=== PATIENT | female | born 1995 | race Caucasian/White ===

== ENCOUNTER 2019-07-13 05:44 | Emergency (ER) | payer OTHER ==
[2019-07-13] MEDS ORDERED: Sodium Chloride 0.9% 10 ML Syringe FLUSH PRN (06:25)
--- NOTE | 2019-07-13 06:34 | EDM.PDOC ---
ED HPI GENERAL MEDICAL PROBLEM - General Chief Complaint: General Stated Complaint: nausea/vomiting Time Seen by Provider: 07/13/19 06:13 Source of Information: Reports: Patient History Limitations: Reports: No Limitations - History of Present Illness INITIAL COMMENTS - FREE TEXT/NARRATIVE: Patient comes to ER reporting that she developed intermittent sharp pains that would travel up the back of her neck intermittently overnight after she went to bed. These would wake her up. This morning she still has the intermittent pain and also has nausea and vomiting. Nothing specifically triggers the neck pain. No vertigo/visual changes. Had a recent head cold a week ago but that resolved. Had headache on way to ER but that also has resolved. Has tingly paresthesias both upper arms. Glove and stocking distribution. Improves when patient not laying down trying to sleep. Feels like she is "trying to stand on a boat" when standing. Near to hyperventilation when she arrived per ER nurse. No other acute complaints. Has had some shooting pains in the neck on one side before from shoulder issues, but not both sides. Denies chance of Did have a few drinks with significant other last night. - Related Data Allergies Allergy/AdvReac Type Severity Reaction Status Date / Time Sulfa (Sulfonamide Allergy Hives Verified 07/13/19 06:01 Antibiotics) Home Meds: Home Meds Norgestimate-Ethinyl Estradiol [Estarylla 0.25-0.035 mg Tablet] 1 each PO DAILY 07/13/19 [History] Past Medical History - Past Surgical History Female Surgical History: Reports: None Musculoskeletal Surgical History: Reports: Other (See Below) Other Musculoskeletal Surgeries/Procedures:: Scope of the right knee. Social & Family History - Family History Family Medical History: Unobtainable - Tobacco Use Smoking Status *Q: Never Smoker - Caffeine Use Caffeine Use: Reports: Coffee, Soda - Alcohol Use Days Per Week of Alcohol Use: 1 Number of Drinks Per Day: 1 Total Drinks Per Week: 1 - Recreational Drug Use Recreational Drug Use: No ED ROS GENERAL - Review of Systems Review Of Systems: See Below Constitutional: Reports: Malaise, Decreased Appetite. Denies: Fever, Chills, Weakness, Night Sweats, Diaphoresis HEENT: Denies: Dental Pain, Ear Pain, Rhinitis, Throat Pain, Vertigo, Vision Change Respiratory: Reports: No Symptoms Cardiovascular: Reports: No Symptoms GI/Abdominal: Reports: Nausea, Vomiting. Denies: Abdominal Pain, Constipation, Diarrhea : Reports: No Symptoms Musculoskeletal: Reports: Neck Pain. Denies: Muscle Stiffness Skin: Reports: No Symptoms Neurological: Reports: Dizziness, Headache, Paresthesia, Tingling. Denies: Pre- Existing Deficit, Seizure, Syncope, Trouble Speaking, Weakness, Change in Speech , Gait Disturbance Psychiatric: Reports: Anxiety (about symptoms) Hematologic/Lymphatic: Reports: No Symptoms ED EXAM, GENERAL - Physical Exam Exam: See Below Exam Limited By: No Limitations General Appearance: Alert, WD/WN, No Apparent Distress Eye Exam: Bilateral Eye: EOMI, PERRL Ears: Normal External Exam, Normal Canal, Hearing Grossly Normal, Normal TMs Nose: Normal Inspection Throat/Mouth: Normal Inspection, Normal Lips, Normal Voice, No Airway Compromise Head: Atraumatic, Normocephalic Neck: Normal Inspection, Supple, Full Range of Motion, Other (Tender with palpation over both SCM muscles, reproduces pain complaint) Respiratory/Chest: No Respiratory Distress, Lungs Clear, Normal Breath Sounds Cardiovascular: Normal Peripheral Pulses, Regular Rate, Rhythm, No Edema, No Murmur GI/Abdominal: Normal Bowel Sounds, Soft, Non-Tender, No Distention (Female) Exam: Deferred Rectal (Female) Exam: Deferred Back Exam: No: CVA Tenderness (L), CVA Tenderness (R), Muscle Spasm, Paraspinal Tenderness, Vertebral Tenderness Extremities: Normal Range of Motion, Non-Tender, Normal Capillary Refill Neurological: Alert, Oriented, CN II-XII Intact, Normal Cognition, Other ( Sensation intact limbs) Psychiatric: Anxious Skin Exam: Warm, Dry, Intact, Normal Color, No Rash Course - Vital Signs Last Recorded V/S: Last Vital Signs Temp 36.9 C 07/13/19 06:44 Pulse 66 07/13/19 07:41 Resp 15 07/13/19 07:41 BP 106/84 07/13/19 07:41 Pulse Ox 100 07/13/19 07:41 - Orders/Labs/Meds Orders: Active Orders 24 hr Category Date Time Status UA W/MICROSCOPIC [URIN] Stat Lab 07/13/19 06:40 Ordered Sodium Chloride 0.9% [Saline Flush] Med 07/13/19 06:25 Active 10 ml FLUSH ASDIRECTED PRN Saline Lock Insert [OM.PC] Routine Oth 07/13/19 06:25 Ordered Medication Orders Sodium Chloride (Saline Flush) 10 ml FLUSH ASDIRECTED PRN PRN Reason: Keep Vein Open Labs: Laboratory Tests 07/13/19 07/13/19 07/13/19 Range/Units 06:40 06:40 06:40 WBC 9.9 (4.0-10.2) K/uL RBC 4.46 (3.77-5.09) M/uL Hgb 13.0 (11.7-15.5) g/dL Hct 37.2 (34.0-46.0) % MCV 83.4 L (84.0-98.0) fL MCH 29.1 (28.2-33.3) pg MCHC 34.9 (31.7-36.0) g/dL RDW 13.2 (11.2-14.1) % Plt Count 294 (150-350) K/uL Neut % (Auto) 70.9 (45.0-80.0) % Lymph % (Auto) 20.5 (10.0-50.0) % Boyle % (Auto) 5.9 (2.0-14.0) % Eos % (Auto) 2.1 (0.0-5.0) % Baso % (Auto) 0.6 (0.0-2.0) % Neut # (Auto) 6.99 (1.40-7.00) K/uL Lymph # (Auto) 2.02 (0.50-3.50) K/uL Boyle # (Auto) 0.58 (0.00-1.00) K/uL Eos # (Auto) 0.21 (0.00-0.50) K/uL Baso # (Auto) 0.06 (0.00-0.20) K/uL Sodium 141 (136-145) mmol/L Potassium 3.7 (3.5-5.1) mmol/L Chloride 104 (98-107) mmol/L Carbon Dioxide 24.6 (21.0-32.0) mmol/L BUN 11 (7-18) mg/dL Creatinine 0.81 (0.51-1.17) mg/dL Est Cr Clr Drug Dosing 123.59 mL/min Estimated GFR (MDRD) > 60 mL/min Glucose 95 (74-106) mg/dL Lactic Acid 2.8 H (0.4-2.0) mmol/L Calcium 8.8 (8.5-10.1) mg/dL Magnesium 1.3 L (1.8-2.4) mg/dL Total Bilirubin 0.3 (0.2-1.0) mg/dL AST 19 (15-37) U/L ALT 27 (12-78) U/L Alkaline Phosphatase 58 (46-116) IU/L Total Protein 6.8 (6.4-8.2) g/dL Albumin 3.4 (3.4-5.0) g/dL Meds: Medications Generic Name Dose Route Start Last Admin Trade Name Freq PRN Reason Stop Dose Admin Sodium Chloride 10 ml 07/13/19 06:25 Saline Flush FLUSH ASDIRECTED PRN Keep Vein Open Discontinued Medications Generic Name Dose Route Start Last Admin Trade Name Freq PRN Reason Stop Dose Admin Diazepam 2 mg 07/13/19 06:41 07/13/19 07:13 Valium IVPUSH 07/13/19 06:42 2 mg ONETIME ONE Administration Sodium Chloride 1,000 mls @ 999 mls/hr 07/13/19 06:40 07/13/19 06:48 Normal Saline IV 07/13/19 07:40 999 mls/hr .BOLUS ONE Administration Ketorolac Tromethamine 30 mg 07/13/19 06:40 07/13/19 07:10 Toradol IVPUSH 07/13/19 06:41 30 mg ONETIME ONE Administration Ondansetron HCl 4 mg 07/13/19 06:40 07/13/19 07:08 Zofran IVPUSH 07/13/19 06:41 4 mg ONETIME ONE Administration - Re-Assessments/Exams Free Text/Narrative Re-Assessment/Exam: 07/13/19 06:38 Possible gastroenteritis, unusual grouping of symptoms. Will order labs. IV fluids. Meds for nausea/anxiety. Free Text/Narrative Re-Assessment/Exam: 07/13/19 08:05 Patient is feeling improved. Tingling of hands is not as bad, neither is the neck muscle tightness/pain. Emesis improved. Lab results show elevated lactic acid, low mag. Plan at this time is to give additional fluid and magnesium replacement. Re- evaluate lactic acid at 1100. to take over care at this time. Departure - Departure Time of Disposition: 08:08 Disposition: Still A Patient 30 Condition: Good Clinical Impression: Elevated lactic acid level, Paresthesia of both hands, Muscle pain, cervical Nausea & vomiting Qualifiers: Vomiting type: unspecified Vomiting Intractability: non-intractable Qualified Code(s): R11.2 - Nausea with vomiting, unspecified - Discharge Information Sepsis Event Note - Focused Exam Vital Signs: Vital Signs Temp Pulse Resp BP Pulse Ox 07/13/19 07:41 66 15 106/84 100 07/13/19 07:21 71 16 122/73 100 07/13/19 07:05 75 16 126/71 100 07/13/19 06:44 36.9 C 72 16 128/81 100 Date Exam was Performed: 07/13/19 Time Exam was Performed: 08:05 - My Orders Last 24 Hours: My Active Orders 07/13/19 06:25 Sodium Chloride 0.9% [Saline Flush] 10 ml FLUSH ASDIRECTED PRN Saline Lock Insert [OM.PC] Routine 07/13/19 06:40 UA W/MICROSCOPIC [URIN] Stat - Assessment/Plan Last 24 Hours: My Active Orders 07/13/19 06:25 Sodium Chloride 0.9% [Saline Flush] 10 ml FLUSH ASDIRECTED PRN Saline Lock Insert [OM.PC] Routine 07/13/19 06:40 UA W/MICROSCOPIC [URIN] Stat
[2019-07-13] MEDS ORDERED: Ondansetron 4 MG/2 ML SDV IVPUSH ONE (06:40)
[2019-07-13] MEDS ORDERED: Ketorolac 30 MG/ML SDV IVPUSH ONE (06:40)
[2019-07-13] MEDS ORDERED: Sodium Chloride 0.9% 1,000 ML IV ONE ×2 (06:40→08:11)
[2019-07-13 07:02] LABS: CHLORIDE,CL 104 mmol/L (98-107); SODIUM,NA 141 mmol/L (136-145)
--- NOTE | 2019-07-13 11:53 | EDM.PDOC ---
ED HPI GENERAL MEDICAL PROBLEM - General Chief Complaint: General Stated Complaint: nausea/vomiting Time Seen by Provider: 07/13/19 06:13 Source of Information: Reports: Patient History Limitations: Reports: No Limitations - History of Present Illness INITIAL COMMENTS - FREE TEXT/NARRATIVE: Patient comes to ER reporting that she developed intermittent sharp pains that would travel up the back of her neck intermittently overnight after she went to bed. These would wake her up. This morning she still has the intermittent pain and also has nausea and vomiting. Nothing specifically triggers the neck pain. No vertigo/visual changes. Had a recent head cold a week ago but that resolved. Had headache on way to ER but that also has resolved. Has tingly paresthesias both upper arms. Glove and stocking distribution. Improves when patient not laying down trying to sleep. Feels like she is "trying to stand on a boat" when standing. Near to hyperventilation when she arrived per ER nurse. No other acute complaints. Has had some shooting pains in the neck on one side before from shoulder issues, but not both sides. Denies chance of Did have a few drinks with significant other last night. ADDENDUM: I did assume care from Dr. Lara this morning with Dr. Lara updating me concerning her treatment plan, etc. prior to transferring the patient's care to me in the emergency room. 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 - Past Surgical History Female Surgical History: Reports: None Musculoskeletal Surgical History: Reports: Other (See Below) Other Musculoskeletal Surgeries/Procedures:: Scope of the right knee. Social & Family History - Family History Family Medical History: Unobtainable - Tobacco Use Smoking Status *Q: Never Smoker Tobacco Use Within Last Twelve Months: No Used Tobacco, but Quit: No Smoking Cessation Information Provided To Patient: No Second Hand Smoke Exposure: No Second Hand Smoke Education Provided: No - Caffeine Use Caffeine Use: Reports: Coffee, Soda - Alcohol Use Days Per Week of Alcohol Use: 1 Number of Drinks Per Day: 1 Total Drinks Per Week: 1 - Recreational Drug Use Recreational Drug Use: No ED ROS GENERAL - Review of Systems Review Of Systems: Comprehensive ROS is negative, except as noted in HPI. (As conducted by Dr. Lara) ED EXAM, GENERAL - Physical Exam Exam: See Below (As conducted by Dr. Lara) Free Text/Narrative:: Patient comes to ER reporting that she developed intermittent sharp pains that would travel up the back of her neck intermittently overnight after she went to bed. These would wake her up. This morning she still has the intermittent pain and also has nausea and vomiting. Nothing specifically triggers the neck pain. No vertigo/visual changes. Had a recent head cold a week ago but that resolved. Had headache on way to ER but that also has resolved. Has tingly paresthesias both upper arms. Glove and stocking distribution. Improves when patient not laying down trying to sleep. Feels like she is "trying to stand on a boat" when standing. Near to hyperventilation when she arrived per ER nurse. No other acute complaints. Has had some shooting pains in the neck on one side before from shoulder issues, but not both sides. Denies chance of Did have a few drinks with significant other last night. Exam Limited By: No Limitations General Appearance: Alert, WD/WN, No Apparent Distress Ears: Normal External Exam, Normal Canal, Hearing Grossly Normal, Normal TMs Nose: Normal Inspection Throat/Mouth: Normal Inspection, Normal Lips, Normal Voice, No Airway Compromise Head: Atraumatic, Normocephalic Neck: Normal Inspection, Supple, Full Range of Motion, Other (Tender with palpation over both SCM muscles, reproduces pain complaint) Respiratory/Chest: No Respiratory Distress, Lungs Clear, Normal Breath Sounds Cardiovascular: Normal Peripheral Pulses, Regular Rate, Rhythm, No Edema, No Murmur GI/Abdominal: Normal Bowel Sounds, Soft, Non-Tender, No Distention Back Exam: No: CVA Tenderness (L), CVA Tenderness (R), Muscle Spasm, Paraspinal Tenderness, Vertebral Tenderness Extremities: Normal Range of Motion, Non-Tender, Normal Capillary Refill Neurological: Alert, Oriented, CN II-XII Intact, Normal Cognition, Other ( Sensation intact limbs) Psychiatric: Anxious Skin Exam: Warm, Dry, Intact, Normal Color, No Rash Course - Vital Signs Last Recorded V/S: Last Vital Signs Temp 36.9 C 07/13/19 06:44 Pulse 66 07/13/19 11:30 Resp 19 07/13/19 11:30 BP 128/77 07/13/19 11:30 Pulse Ox 100 07/13/19 11:30 Vital Signs - 24 hr 07/13/19 07/13/19 07/13/19 06:00 06:15 06:44 Temperature [ 25 C L 36.9 C Temporal] Pulse, 74 71 72 Peripheral [ Right Pulse Oximetry] Respiratory 14 18 16 Rate Blood Pressure 123/90 119/85 128/81 [Left Upper Arm ] O2 Sat by Pulse 99 99 100 Oximetry 07/13/19 07/13/19 07/13/19 06:45 07:05 07:21 Temperature [ Temporal] Pulse, 71 75 71 Peripheral [ Right Pulse Oximetry] Respiratory 17 16 16 Rate Blood Pressure 134/79 126/71 122/73 [Left Upper Arm ] O2 Sat by Pulse 100 100 100 Oximetry 07/13/19 07/13/19 07/13/19 07:39 07:41 08:00 Temperature [ Temporal] Pulse, 70 66 66 Peripheral [ Right Pulse Oximetry] Respiratory 20 15 21 H Rate Blood Pressure 124/78 106/84 131/82 [Left Upper Arm ] O2 Sat by Pulse 100 100 100 Oximetry 07/13/19 07/13/19 07/13/19 08:15 08:30 08:55 Temperature [ Temporal] Pulse, 68 68 67 Peripheral [ Right Pulse Oximetry] Respiratory 19 13 18 Rate Blood Pressure 128/90 118/73 118/73 [Left Upper Arm ] O2 Sat by Pulse 96 100 100 Oximetry 07/13/19 07/13/19 07/13/19 09:15 10:45 11:25 Temperature [ Temporal] Pulse, 66 70 68 Peripheral [ Right Pulse Oximetry] Respiratory 21 H 18 15 Rate Blood Pressure 128/77 123/81 123/81 [Left Upper Arm ] O2 Sat by Pulse 100 100 100 Oximetry 07/13/19 11:30 Temperature [ Temporal] Pulse, 66 Peripheral [ Right Pulse Oximetry] Respiratory 19 Rate Blood Pressure 128/77 [Left Upper Arm ] O2 Sat by Pulse 100 Oximetry - Orders/Labs/Meds Orders: Active Orders 24 hr Category Date Time Status Sodium Chloride 0.9% [Saline Flush] Med 07/13/19 06:25 Active 10 ml FLUSH ASDIRECTED PRN Saline Lock Insert [OM.PC] Routine Oth 07/13/19 06:25 Ordered Medication Orders Sodium Chloride (Saline Flush) 10 ml FLUSH ASDIRECTED PRN PRN Reason: Keep Vein Open Labs: Laboratory Tests 07/13/19 07/13/19 07/13/19 Range/Units 06:40 06:40 06:40 WBC 9.9 (4.0-10.2) K/uL RBC 4.46 (3.77-5.09) M/uL Hgb 13.0 (11.7-15.5) g/dL Hct 37.2 (34.0-46.0) % MCV 83.4 L (84.0-98.0) fL MCH 29.1 (28.2-33.3) pg MCHC 34.9 (31.7-36.0) g/dL RDW 13.2 (11.2-14.1) % Plt Count 294 (150-350) K/uL Neut % (Auto) 70.9 (45.0-80.0) % Lymph % (Auto) 20.5 (10.0-50.0) % [place] % (Auto) 5.9 (2.0-14.0) % Eos % (Auto) 2.1 (0.0-5.0) % Baso % (Auto) 0.6 (0.0-2.0) % Neut # (Auto) 6.99 (1.40-7.00) K/uL Lymph # (Auto) 2.02 (0.50-3.50) K/uL [place] # (Auto) 0.58 (0.00-1.00) K/uL Eos # (Auto) 0.21 (0.00-0.50) K/uL Baso # (Auto) 0.06 (0.00-0.20) K/uL Sodium 141 (136-145) mmol/L Potassium 3.7 (3.5-5.1) mmol/L Chloride 104 (98-107) mmol/L Carbon Dioxide 24.6 (21.0-32.0) mmol/L BUN 11 (7-18) mg/dL Creatinine 0.81 (0.51-1.17) mg/dL Est Cr Clr Drug Dosing 123.59 mL/min Estimated GFR (MDRD) > 60 mL/min Glucose 95 (74-106) mg/dL Lactic Acid 2.8 H (0.4-2.0) mmol/L Calcium 8.8 (8.5-10.1) mg/dL Magnesium 1.3 L (1.8-2.4) mg/dL Total Bilirubin 0.3 (0.2-1.0) mg/dL AST 19 (15-37) U/L ALT 27 (12-78) U/L Alkaline Phosphatase 58 (46-116) IU/L Total Protein 6.8 (6.4-8.2) g/dL Albumin 3.4 (3.4-5.0) g/dL Specimen Type Urine Color Urine Appearance Urine pH (5.0-9.0) Ur Specific Salol (1.005-1.030) Urine Protein (NEGATIVE) mg/dL Urine Glucose (UA) (NEGATIVE) mg/dL Urine Ketones (NEGATIVE) mg/dL Urine Occult Blood (NEGATIVE) Urine Nitrite (NEGATIVE) Urine Bilirubin (NEGATIVE) Urine Urobilinogen (0.2-1.0) E.U./dL Ur Leukocyte Esterase (NEGATIVE) Urine RBC /HPF Urine WBC /HPF Ur Epithelial Cells /LPF Urine Bacteria (NONE TO FEW) /HPF Urine Yeast (NEGATIVE) /HPF 07/13/19 07/13/19 Range/Units 08:25 11:09 WBC (4.0-10.2) K/uL RBC (3.77-5.09) M/uL Hgb (11.7-15.5) g/dL Hct (34.0-46.0) % MCV (84.0-98.0) fL MCH (28.2-33.3) pg MCHC (31.7-36.0) g/dL RDW (11.2-14.1) % Plt Count (150-350) K/uL Neut % (Auto) (45.0-80.0) % Lymph % (Auto) (10.0-50.0) % [place] % (Auto) (2.0-14.0) % Eos % (Auto) (0.0-5.0) % Baso % (Auto) (0.0-2.0) % Neut # (Auto) (1.40-7.00) K/uL Lymph # (Auto) (0.50-3.50) K/uL [place] # (Auto) (0.00-1.00) K/uL Eos # (Auto) (0.00-0.50) K/uL Baso # (Auto) (0.00-0.20) K/uL Sodium (136-145) mmol/L Potassium (3.5-5.1) mmol/L Chloride (98-107) mmol/L Carbon Dioxide (21.0-32.0) mmol/L BUN (7-18) mg/dL Creatinine (0.51-1.17) mg/dL Est Cr Clr Drug Dosing mL/min Estimated GFR (MDRD) mL/min Glucose (74-106) mg/dL Lactic Acid 2.2 H (0.4-2.0) mmol/L Calcium (8.5-10.1) mg/dL Magnesium (1.8-2.4) mg/dL Total Bilirubin (0.2-1.0) mg/dL AST (15-37) U/L ALT (12-78) U/L Alkaline Phosphatase (46-116) IU/L Total Protein (6.4-8.2) g/dL Albumin (3.4-5.0) g/dL Specimen Type Urinblad Urine Color Yellow Urine Appearance Clear Urine pH 7.0 (5.0-9.0) Ur Specific Salol 1.015 (1.005-1.030) Urine Protein Negative (NEGATIVE) mg/dL Urine Glucose (UA) Negative (NEGATIVE) mg/dL Urine Ketones Negative (NEGATIVE) mg/dL Urine Occult Blood Trace-intact H (NEGATIVE) Urine Nitrite Negative (NEGATIVE) Urine Bilirubin Negative (NEGATIVE) Urine Urobilinogen 0.2 (0.2-1.0) E.U./dL Ur Leukocyte Esterase Negative (NEGATIVE) Urine RBC 0-5 /HPF Urine WBC Not seen /HPF Ur Epithelial Cells Rare /LPF Urine Bacteria Not seen (NONE TO FEW) /HPF Urine Yeast Rare H (NEGATIVE) /HPF Meds: Medications Generic Name Dose Route Start Last Admin Trade Name Freq PRN Reason Stop Dose Admin Sodium Chloride 10 ml 07/13/19 06:25 Saline Flush FLUSH ASDIRECTED PRN Keep Vein Open Discontinued Medications Generic Name Dose Route Start Last Admin Trade Name Christen PRN Reason Stop Dose Admin Diazepam 2 mg 07/13/19 06:41 07/13/19 07:13 Valium IVPUSH 07/13/19 06:42 2 mg ONETIME ONE Administration Sodium Chloride 1,000 mls @ 999 mls/hr 07/13/19 06:40 07/13/19 06:48 Normal Saline IV 07/13/19 07:40 999 mls/hr .BOLUS ONE Administration Magnesium Sulfate/Dextrose 1 100 mls @ 100 mls/hr 07/13/19 08:09 07/13/19 08: 21 gm/ Premix IV 07/13/19 09:08 100 mls/hr ONETIME ONE Administration Magnesium Sulfate/Dextrose 1 100 mls @ 100 mls/hr 07/13/19 10:00 07/13/19 09: 28 gm/ Premix IV 07/13/19 10:59 100 mls/hr ONETIME ONE Administration Sodium Chloride 1,000 mls @ 500 mls/hr 07/13/19 08:11 07/13/19 09:29 Normal Saline IV 07/13/19 10:10 500 mls/hr .BOLUS ONE Administration Ketorolac Tromethamine 30 mg 07/13/19 06:40 07/13/19 07:10 Toradol IVPUSH 07/13/19 06:41 30 mg ONETIME ONE Administration Ondansetron HCl 4 mg 07/13/19 06:40 07/13/19 07:08 Zofran IVPUSH 07/13/19 06:41 4 mg ONETIME ONE Administration - Radiology Interpretation Free Text/Narrative:: 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 Departure - Departure Time of Disposition: 12:15 Disposition: Home, Self-Care 01 Condition: Good Clinical Impression: Elevated lactic acid level, Paresthesia of both hands, Nausea & vomiting, Muscle pain, cervical, Hypomagnesemia - Discharge Information *PRESCRIPTION DRUG MONITORING PROGRAM REVIEWED*: Not Applicable *COPY OF PRESCRIPTION DRUG MONITORING REPORT IN PATIENT RAIMUNDO: Not Applicable Prescriptions: Magnesium Oxide 800 mg PO BEDTIME #60 tab Instructions: Viral Gastroenteritis, Adult, [id number] Referrals: Jojo Nye PA-C [Primary Care Provider] - Additional Instructions: 1. Followup with your regular provider tomorrow as directed recommended repeat CBC, magnesium level, lactic acid level, amylase, lipase, and serum qualitative hCG evaluation. To expedite results strongly recommend that these evaluations be conducted at [facility]. Bring these discharge instructions with you to that visit. , 2. [place] diet including encouragement of oral fluids such as sports drinks, etc. for 24-48 hours as directed. Advance to regular diet as tolerated thereafter. 3. Immediately after this visit verify that your cellular telephone's voicemail has been activated and is empty. Also verify that your home telephone 's answering machine is operating properly and has space to receive messages. Note that it is sometimes necessary for us to be able to contact you at a later date to discuss your medical care. 4. Please remember that we are ALWAYS here for you and want to answer any questions you may have. Feel free to call the hospital any time and we call you back JOSEFINA. 5. Consider additional repeat of your magnesium level in 1-2 weeks with continuation of magnesium oxide supplementation per instructions by your regular provider. 6. Tylenol 650 mg by mouth every 4 hours and/or OTC ibuprofen 2-3 tabs by mouth every 6 hours with food as directed./needed. You may stagger these medications for 48-72 hours only, which essentially means that you are receiving a pain medication about every 2 hours. Sepsis Event Note - Evaluation Sepsis Screening Result: No Definite Risk - Focused Exam Vital Signs: Vital Signs Temp Pulse Resp BP Pulse Ox 07/13/19 11:30 66 19 128/77 100 07/13/19 11:25 68 15 123/81 100 07/13/19 10:45 70 18 123/81 100 07/13/19 09:15 66 21 H 128/77 100 07/13/19 08:55 67 18 118/73 100 07/13/19 08:30 68 13 118/73 100 07/13/19 08:15 68 19 128/90 96 07/13/19 08:00 66 21 H 131/82 100 07/13/19 07:41 66 15 106/84 100 07/13/19 07:39 70 20 124/78 100 07/13/19 07:21 71 16 122/73 100 07/13/19 07:05 75 16 126/71 100 07/13/19 06:45 71 17 134/79 100 07/13/19 06:44 36.9 C 72 16 128/81 100 07/13/19 06:15 71 18 119/85 99 07/13/19 06:00 25 C L 74 14 123/90 99 Date Exam was Performed: 07/13/19 Time Exam was Performed: 12:15 - Problem List & Annotations (1) Nausea & vomiting SNOMED Code(s): 28274900 Code(s): R11.2 - NAUSEA WITH VOMITING, UNSPECIFIED Status: Acute Priority : High Current Visit: Yes Onset Date: 07/13/19 Annotation/Comment:: Resolved at time of discharge. Likely secondary to recent alcohol intake, however patient was given information concerning possible beginning viral gastritis. Observe for now. Symptomatic relief as per discharge instructions. Note insufficient blood sample for recommended amylase, lipase, and serum quanlitative beta-hCG in spite of 2 previous blood draws. Blood work to be conducted at follow-up tomorrow as per discharge instructions. Note normal LMP 2 weeks ago by patient history with current BCP use. Qualifiers: Vomiting type: unspecified Vomiting Intractability: non-intractable Qualified Code(s): R11.2 - Nausea with vomiting, unspecified (2) Elevated lactic acid level SNOMED Code(s): 4272907 Code(s): R79.89 - OTHER SPECIFIED ABNORMAL FINDINGS OF BLOOD CHEMISTRY Status: Acute Priority: High Current Visit: Yes Onset Date: 07/13/19 Annotation/Comment:: Secondary to some mild dehydration with IV lactated Ringer' s given in the emergency room as above. No fever, leukocytosis, etc. with only mildly elevated persistent lactic acid level after this therapy. No clinical evidence of sepsis. Close follow-up by regular provider as per discharge instructions. (3) Hypomagnesemia SNOMED Code(s): 172892765 Code(s): E83.42 - HYPOMAGNESEMIA Status: Acute Priority: High Current Visit: Yes Onset Date: 07/13/19 Annotation/Comment:: Magnesium sulfate IV administered in the emergency room as above with continuation of oral magnesium oxide starting this evening. Close follow-up by her regular provider as per discharge instructions. Consider continuing magnesium oxide therapy until her follow-up blood work and evaluation in 12 weeks. (4) Muscle pain, cervical SNOMED Code(s): 88903914, 02080697 Code(s): M54.2 - CERVICALGIA Status: Acute Priority: High Current Visit : Yes Onset Date: 07/13/19 Annotation/Comment:: Significantly improved/ resolved with therapy as above. Close follow-up by regular provider. (5) Paresthesia of both hands SNOMED Code(s): 789876233 Code(s): R20.2 - PARESTHESIA OF SKIN Status: Acute Priority: High Current Visit: Yes Onset Date: 07/13/19 Annotation/Comment:: Significantly improved/resolved prior to discharge. - Problem List Review Problem List Initiated/Reviewed/Updated: Yes - Assessment/Plan Assessment:: As above Plan: As above. Extensive precautions were given to the patient and her boyfriend, who are in agreement with the treatment plan. See Patient Instructions for further treatment and plan. Otherwise physical exam and vital signs are stable at time of discharge.
== END 2019-07-13 12:15 | disposition home or self-care (01) ==
LOC: LL.ED 05:44
DX: M54.2 Cervicalgia (principal); R11.2 Nausea with vomiting, unspecified; R20.2 Paresthesia of skin; R78.89 Finding of other specified substances, not normally found in blood; E83.42 Hypomagnesemia; Z88.2 Allergy status to sulfonamides
CPT/HCPCS: 36415; 80053; 81001; 83605; 83735; 85025; 96361; 96365; 96366; 96375; 99284; J1885; J2405; J3360; J3475; J7030

== ENCOUNTER 2019-09-11 02:28 | Emergency (ER) | payer OTHER ==
[2019-09-11] MEDS: Ondansetron 4 MG/2 ML SDV IVPUSH ONE (02:54)
[2019-09-11] MEDS: Ketorolac 30 MG/ML SDV IVPUSH ONE (02:54)
[2019-09-11] MEDS: Sodium Chloride 0.9% 10 ML Syringe FLUSH PRN (02:55)
[2019-09-11] MEDS: Tamsulosin 0.4 MG Cap.ER PO ONE (02:58)
[2019-09-11 03:20] LABS: CHLORIDE,CL 109 mmol/L (98-107); SODIUM,NA 142 mmol/L (136-145)
--- NOTE | 2019-09-11 03:23 | EDM.PDOC ---
ED HPI GENERAL MEDICAL PROBLEM - General Chief Complaint: Back Pain or Injury Stated Complaint: Lower back pain Time Seen by Provider: 09/11/19 03:00 Source of Information: Reports: Patient History Limitations: Reports: No Limitations - History of Present Illness INITIAL COMMENTS - FREE TEXT/NARRATIVE: Patient comes to ER complaining of left lower back pain, nausea. Emesis around 9pm. Pain started/woke her up around 1:30am. Similar to previous episodes of kidney stones. No other acute changes reported. 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 Endocrine/Metabolic History: Reports: Obesity/BMI 30+ - Past Surgical History HEENT Surgical History: Reports: Oral Surgery Female Surgical History: Reports: None Musculoskeletal Surgical History: Reports: Other (See Below) Other Musculoskeletal Surgeries/Procedures:: Scope of the right knee. Social & Family History - Family History Family Medical History: Unobtainable - Tobacco Use Smoking Status *Q: Never Smoker Second Hand Smoke Exposure: No - Caffeine Use Caffeine Use: Reports: Coffee - Alcohol Use Alcohol Use History: No - Recreational Drug Use Recreational Drug Use: No ED ROS GENERAL - Review of Systems Review Of Systems: See Below Constitutional: Reports: Decreased Appetite. Denies: Fever, Chills, Night Sweats, Diaphoresis HEENT: Reports: No Symptoms Respiratory: Reports: No Symptoms Cardiovascular: Reports: No Symptoms GI/Abdominal: Reports: Nausea, Vomiting. Denies: Abdominal Pain, Constipation, Diarrhea, Distension, Hematochezia : Reports: Urgency. Denies: Discharge, Dysuria, Flank Pain, Hematuria, Incontinence, Pain Musculoskeletal: Reports: Back Pain Skin: Reports: No Symptoms Neurological: Reports: No Symptoms Psychiatric: Reports: No Symptoms Hematologic/Lymphatic: Reports: No Symptoms ED EXAM, GENERAL - Physical Exam Exam: See Below Exam Limited By: No Limitations General Appearance: Alert, WD/WN, No Apparent Distress Eye Exam: Bilateral Eye: EOMI, PERRL Ears: Hearing Grossly Normal Nose: No: Nasal Deformity, Nasal Swelling, Nasal Drainage Throat/Mouth: Normal Lips, Normal Voice, No Airway Compromise Neck: Supple, Non-Tender Respiratory/Chest: No Respiratory Distress, Lungs Clear, Normal Breath Sounds, No Accessory Muscle Use, Chest Non-Tender Cardiovascular: Regular Rate, Rhythm, No Murmur GI/Abdominal: Normal Bowel Sounds, Soft, Non-Tender (Female) Exam: Deferred Rectal (Female) Exam: Deferred Back Exam: Normal Inspection. No: CVA Tenderness (L), CVA Tenderness (R), Muscle Spasm, Paraspinal Tenderness, Vertebral Tenderness Extremities: Normal Inspection, Normal Capillary Refill Neurological: Alert, Oriented, Normal Cognition, Normal Gait Psychiatric: Normal Affect, Normal Mood Skin Exam: Warm, Dry, Intact, Normal Color Course - Vital Signs Last Recorded V/S: Last Vital Signs Temp 36.8 C 09/11/19 02:30 Pulse 82 09/11/19 02:30 Resp 14 09/11/19 02:30 BP 154/95 H 09/11/19 02:30 Pulse Ox 95 09/11/19 02:30 - Orders/Labs/Meds Orders: Active Orders 24 hr Category Date Time Status Sodium Chloride 0.9% [Saline Flush] Med 09/11/19 02:48 Active 10 ml FLUSH ASDIRECTED PRN Medication Orders Sodium Chloride (Saline Flush) 10 ml FLUSH ASDIRECTED PRN PRN Reason: Flush Last Admin: 09/11/19 02:55 Dose: 10 ml Labs: Laboratory Tests 09/11/19 09/11/19 09/11/19 Range/Units 02:44 02:58 02:58 WBC 7.8 (4.0-10.2) K/uL RBC 4.40 (3.77-5.09) M/uL Hgb 12.6 (11.7-15.5) g/dL Hct 37.0 (34.0-46.0) % MCV 84.1 (84.0-98.0) fL MCH 28.6 (28.2-33.3) pg MCHC 34.1 (31.7-36.0) g/dL RDW 14.0 (11.2-14.1) % Plt Count 302 (150-350) K/uL Neut % (Auto) 52.5 (45.0-80.0) % Lymph % (Auto) 36.4 (10.0-50.0) % Gilchrist % (Auto) 8.5 (2.0-14.0) % Eos % (Auto) 2.2 (0.0-5.0) % Baso % (Auto) 0.4 (0.0-2.0) % Neut # (Auto) 4.10 (1.40-7.00) K/uL Lymph # (Auto) 2.84 (0.50-3.50) K/uL Gilchrist # (Auto) 0.66 (0.00-1.00) K/uL Eos # (Auto) 0.17 (0.00-0.50) K/uL Baso # (Auto) 0.03 (0.00-0.20) K/uL Sodium 142 (136-145) mmol/L Potassium 3.8 (3.5-5.1) mmol/L Chloride 109 H (98-107) mmol/L Carbon Dioxide 22.1 (21.0-32.0) mmol/L BUN 15 (7-18) mg/dL Creatinine 0.80 (0.51-1.17) mg/dL Est Cr Clr Drug Dosing 125.13 mL/min Estimated GFR (MDRD) > 60 mL/min Glucose 108 H (74-106) mg/dL Calcium 8.4 L (8.5-10.1) mg/dL Total Bilirubin 0.2 (0.2-1.0) mg/dL AST 20 (15-37) U/L ALT 22 (12-78) U/L Alkaline Phosphatase 57 (46-116) IU/L Total Protein 6.5 (6.4-8.2) g/dL Albumin 3.2 L (3.4-5.0) g/dL Specimen Type Urinvoid Urine Color Yellow Urine Appearance Clear Urine pH 5.5 (5.0-9.0) Ur Specific [place] >= 1.030 (1.005-1.030) Urine Protein Negative (NEGATIVE) mg/dL Urine Glucose (UA) Negative (NEGATIVE) mg/dL Urine Ketones Negative (NEGATIVE) mg/dL Urine Occult Blood Moderate H (NEGATIVE) Urine Nitrite Negative (NEGATIVE) Urine Bilirubin Negative (NEGATIVE) Urine Urobilinogen 0.2 (0.2-1.0) E.U./dL Ur Leukocyte Esterase Negative (NEGATIVE) Urine RBC 10-20 H /HPF Urine WBC 0-5 /HPF Ur Epithelial Cells Few /LPF Urine Bacteria Few (NONE TO FEW) /HPF Urine HCG, Qual 09/10/ Range/Units 03:15 WBC (4.0-10.2) K/uL RBC (3.77-5.09) M/uL Hgb (11.7-15.5) g/dL Hct (34.0-46.0) % MCV (84.0-98.0) fL MCH (28.2-33.3) pg MCHC (31.7-36.0) g/dL RDW (11.2-14.1) % Plt Count (150-350) K/uL Neut % (Auto) (45.0-80.0) % Lymph % (Auto) (10.0-50.0) % Gilchrist % (Auto) (2.0-14.0) % Eos % (Auto) (0.0-5.0) % Baso % (Auto) (0.0-2.0) % Neut # (Auto) (1.40-7.00) K/uL Lymph # (Auto) (0.50-3.50) K/uL Gilchrist # (Auto) (0.00-1.00) K/uL Eos # (Auto) (0.00-0.50) K/uL Baso # (Auto) (0.00-0.20) K/uL Sodium (136-145) mmol/L Potassium (3.5-5.1) mmol/L Chloride (98-107) mmol/L Carbon Dioxide (21.0-32.0) mmol/L BUN (7-18) mg/dL Creatinine (0.51-1.17) mg/dL Est Cr Clr Drug Dosing mL/min Estimated GFR (MDRD) mL/min Glucose (74-106) mg/dL Calcium (8.5-10.1) mg/dL Total Bilirubin (0.2-1.0) mg/dL AST (15-37) U/L ALT (12-78) U/L Alkaline Phosphatase (46-116) IU/L Total Protein (6.4-8.2) g/dL Albumin (3.4-5.0) g/dL Specimen Type Urine Color Urine Appearance Urine pH (5.0-9.0) Ur Specific [place] (1.005-1.030) Urine Protein (NEGATIVE) mg/dL Urine Glucose (UA) (NEGATIVE) mg/dL Urine Ketones (NEGATIVE) mg/dL Urine Occult Blood (NEGATIVE) Urine Nitrite (NEGATIVE) Urine Bilirubin (NEGATIVE) Urine Urobilinogen (0.2-1.0) E.U./dL Ur Leukocyte Esterase (NEGATIVE) Urine RBC /HPF Urine WBC /HPF Ur Epithelial Cells /LPF Urine Bacteria (NONE TO FEW) /HPF Urine HCG, Qual Negative Meds: Medications Generic Name Dose Route Start Last Admin Trade Name Freq PRN Reason Stop Dose Admin Sodium Chloride 10 ml 09/11/19 02:48 09/11/19 02:55 Saline Flush FLUSH 10 ml ASDIRECTED PRN Administration Flush Discontinued Medications Generic Name Dose Route Start Last Admin Trade Name Freq PRN Reason Stop Dose Admin Ketorolac Tromethamine 30 mg 09/11/19 02:45 09/11/19 02:54 Toradol IVPUSH 09/11/19 02:46 30 mg ONETIME ONE Administration Ondansetron HCl 4 mg 09/11/19 02:45 09/11/19 02:54 Zofran IVPUSH 09/11/19 02:46 4 mg ONETIME ONE Administration Tamsulosin HCl 0.4 mg 09/11/19 02:45 09/11/19 02:58 Flomax PO 09/11/19 02:46 0.4 mg ONETIME ONE Administration - Re-Assessments/Exams Free Text/Narrative Re-Assessment/Exam: 09/11/19 03:42 CBC/Complete/UA overall unremarkable. Mild increase RBCs in UA specimen. HCG negative. Patient felt much better after Zofran and Toradol. Also given Flomax. Declined IV fluids and CT scan. Would like to return home. Is willing to follow up as needed if symptoms worsen or if stone does not pass over the weekend. Precautions reviewed. Patient has passed several stones in past and is familiar with the issue. Departure - Departure Time of Disposition: 03:23 Disposition: Home, Self-Care 01 Condition: Good Clinical Impression: History of kidney stones Nausea & vomiting Qualifiers: Vomiting type: unspecified Vomiting Intractability: non-intractable Qualified Code(s): R11.2 - Nausea with vomiting, unspecified Low back pain Qualifiers: Chronicity: acute Back pain laterality: unspecified Sciatica presence: without sciatica Qualified Code(s): M54.5 - Low back pain - Discharge Information *PRESCRIPTION DRUG MONITORING PROGRAM REVIEWED*: Not Applicable *COPY OF PRESCRIPTION DRUG MONITORING REPORT IN PATIENT RAIMUNDO: Not Applicable Instructions: Ondansetron oral dissolving tablet, Ketorolac injection, Kidney Stones, [id number], Tamsulosin capsules, Ketorolac tablets Referrals: Jojo Nye PA-C [Primary Care Provider] - Forms: ED Department Discharge, ED Return to Work/School Form Additional Instructions: Take Ketorolac one tab every 6-8 hours for pain. Take Ondansetron every 6-8 hours for nausea. Take Flomax every 12-24 hours to help promote good flow of urine to help you pass the stone. Stay hydrated! Follow up as needed if you get suddenly worse. Follow up for recheck and probable CT scan if you have not passed the stone within the next 4-5 days. Sepsis Event Note - Evaluation Sepsis Screening Result: No Definite Risk - Focused Exam Vital Signs: Vital Signs Temp Pulse Resp BP Pulse Ox 09/11/19 02:30 36.8 C 82 14 154/95 H 95 Date Exam was Performed: 09/11/19 Time Exam was Performed: 03:38 - My Orders Last 24 Hours: My Active Orders 09/11/19 02:48 Sodium Chloride 0.9% [Saline Flush] 10 ml FLUSH ASDIRECTED PRN - Assessment/Plan Last 24 Hours: My Active Orders 09/11/19 02:48 Sodium Chloride 0.9% [Saline Flush] 10 ml FLUSH ASDIRECTED PRN
== END 2019-09-11 03:40 | disposition home or self-care (01) ==
LOC: LL.ED 02:28
DX: M54.5 Low back pain (principal); R11.2 Nausea with vomiting, unspecified; Z88.2 Allergy status to sulfonamides; E66.9 Obesity, unspecified; Z68.32 Body mass index [BMI] 32.0-32.9, adult; Z87.442 Personal history of urinary calculi
CPT/HCPCS: 36415; 80053; 81001; 81025; 85025; 96374; 96375; 99284-25; A9270-GY; J1885; J2405

== ENCOUNTER 2019-10-15 18:12 | Emergency (ER) | payer BC, OTHER ==
--- NOTE | 2019-10-15 18:15 | EDM.PDOC ---
ED HPI GENERAL MEDICAL PROBLEM - General Chief Complaint: Genitourinary Problem Stated Complaint: uti, flank pain Time Seen by Provider: 10/15/19 18:14 Source of Information: Reports: Patient, Old Records ([facility] EMR. No paper hospital chart available.) History Limitations: Reports: No Limitations - History of Present Illness INITIAL COMMENTS - FREE TEXT/NARRATIVE: The patient drove herself to the emergency room via private automobile for evaluation of a 2 day history of increased urinary frequency with borderline dysuria but no history of gross hematuria, colic, diaphoresis, etc.. No recent history of abdominal pain, heartburn, nausea, diarrhea, melena, gross hematochezia, or any food intolerance, including fatty foods, etc.. The patient also denies any recent fever, cough, wheezing, dyspnea, etc.. She does complain of 12/10 nonspecific left CVA aching sensation with no symptoms of her previous colic attacks. Onset: Gradual Onset Date: 10/13/19 Duration: Intermittent Location: Reports: Back. Denies: Head, Face, Neck, Chest, Abdomen, Upper E xtremity, Left, Upper Extremity, Right, Lower Extremity, Left, Radiates to Quality: Reports: Ache, Same as Previous Episode Severity: Mild Improves with: Reports: None Worsens with: Reports: None Context: Reports: Other (As above). Denies: Lifting, Sick Contact, Trauma Associated Symptoms: Reports: No Other Symptoms. 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 Denies: Hard of Hearing, Impaired Vision Cardiovascular History: Reports: Heart Murmur, Other (See Below). Denies: Arrhythmia, High Cholesterol, Hypertension Other Cardiovascular History: Atrial septal defect. She does not know her cholesterol status. Respiratory History: Reports: None. Denies: Asthma, COPD Genitourinary History: Reports: Renal Calculus, Other (See Below). Denies: Acute Renal Failure, Chronic Renal Insuffiency, STD, Urinary Incontinence, UTI, Recurrent Other Genitourinary History: Recurrent bilateral urolithiasis with last episode possibly on 09/11/19 with spontaneous passage on each occasion. 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 Musculoskeletal History: Reports: Arthritis, Back Pain, Chronic, Neck Pain, Chronic, Osteoarthritis. Denies: Fracture, Gout, RA, SLE Endocrine/Metabolic History: Reports: Obesity/BMI 30+ - Past Surgical History HEENT Surgical History: Reports: Oral Surgery, Other (See Below). Denies: Adenoidectomy, Eye Surgery, Laser Surgery, Myringotomy w Tube(s), Naso-Sinus Surgery, Tonsillectomy Other HEENT Surgeries/Procedures: [place] teeth extraction 4 at age 16. Female Surgical History: Reports: None Musculoskeletal Surgical History: Reports: Arthroscopic Knee, Arthroscopic Procedure, Other (See Below) Other Musculoskeletal Surgeries/Procedures:: Scope of the right knee in 2012. Social & Family History - Family History Family Medical History: Unobtainable - Tobacco Use Smoking Status *Q: Never Smoker Tobacco Use Within Last Twelve Months: No Used Tobacco, but Quit: No Smoking Cessation Information Provided To Patient: No Second Hand Smoke Exposure: No Second Hand Smoke Education Provided: No - Caffeine Use Caffeine Use: Reports: Coffee (1 cup per day), Soda (Rarely) - Alcohol Use Alcohol Use History: Yes Days Per Week of Alcohol Use: 1 Number of Drinks Per Day: 1 Number of Drinks Per Day Comment: Usually beer. No previous DWIs, problems with alcohol abuse, etc. Total Drinks Per Week: 1 Alcohol Use in Last Twelve Months: Yes Alcohol Use Frequency: Weekly - Recreational Drug Use Recreational Drug Use: No Drug Use in Last 12 Months: No Recreational Drug Type: Denies: Amphetamines (Speed), Cocaine, Heroin, Inhalants (Glues, Solvents, Aerosols), LSD (Acid), Marijuana/Hashish, Methamphetamine, Morphine, Oxycodone - Living Situation & Occupation Living situation: Reports: Single, Alone Occupation: Employed ([employer]) ED ROS GENERAL - Review of Systems Review Of Systems: Comprehensive ROS is negative, except as noted in HPI. ED EXAM, RENAL/ - Physical Exam Exam: See Below Exam Limited By: No Limitations General Appearance: Alert, WD/WN, No Apparent Distress Head: Atraumatic, Normocephalic Neck: Normal Inspection, Supple, Non-Tender, Full Range of Motion. No: Lymphadenopathy (L), Lymphadenopathy (R), Thyromegaly Respiratory/Chest: No Respiratory Distress, Lungs Clear, Normal Breath Sounds, No Accessory Muscle Use, Chest Non-Tender. No: Pleural Rub, Retractions Cardiovascular: Normal Peripheral Pulses, Regular Rate, Rhythm, No Edema, No Gallop, No JVD, No Murmur, No Rub. No: Gallop/S3, Gallop/S4, Friction Rub GI/Abdominal: Normal Bowel Sounds, Soft, Non-Tender, No Organomegaly, No Distention, No Abnormal Bruit, No Mass, Other (obese). No: Guarding (Female) Exam: Deferred Rectal (Female) Exam: Deferred Back Exam: Normal Inspection, Full Range of Motion. No: CVA Tenderness (L), CVA Tenderness (R), Muscle Spasm Extremities: Normal Inspection, Normal Range of Motion, Non-Tender, No Pedal Edema, Normal Capillary Refill. No: Tammy's Sign Neurological: Alert, Oriented, CN II-XII Intact, Normal Cognition, Normal Gait, Normal Reflexes, No Motor/Sensory Deficits Psychiatric: Normal Affect, Normal Mood Skin Exam: Warm, Dry, Intact, Normal Color, No Rash. No: Diaphoretic Lymphatic: No Adenopathy Course - Vital Signs Last Recorded V/S: Last Vital Signs Temp 37.0 C 10/15/19 18:15 Pulse 88 10/15/19 18:15 Resp 16 10/15/19 18:15 BP 153/84 H 10/15/19 18:15 Pulse Ox 100 10/15/19 18:15 Vital Signs - 24 hr 10/15/19 18:15 Temperature [ 37.0 C Oral] Pulse, 88 Peripheral [ Right Pulse Oximetry] Respiratory 16 Rate Blood Pressure 153/84 H [Right Upper Arm] O2 Sat by Pulse 100 Oximetry - Orders/Labs/Meds Orders: Active Orders 24 hr Category Date Time Status CULTURE URINE [RM] Routine Lab 10/15/19 18:10 Received Obtain Past Medical Record [OM.PC] Routine Oth 10/15/19 18:15 Active Labs: Laboratory Tests 10/15/19 Range/Units 18:10 Specimen Type Urincc Urine Color Yellow Urine Appearance Clear Urine pH 5.5 (5.0-9.0) Ur Specific [place] >= 1.030 (1.005-1.030) Urine Protein Negative (NEGATIVE) mg/dL Urine Glucose (UA) Negative (NEGATIVE) mg/dL Urine Ketones 15 H (NEGATIVE) mg/dL Urine Occult Blood Moderate H (NEGATIVE) Urine Nitrite Negative (NEGATIVE) Urine Bilirubin Negative (NEGATIVE) Urine Urobilinogen 0.2 (0.2-1.0) E.U./dL Ur Leukocyte Esterase Negative (NEGATIVE) Urine RBC 5-10 H /HPF Urine WBC Not seen /HPF Ur Epithelial Cells Occasional /LPF Urine Bacteria Few (NONE TO FEW) /HPF Urine specimen set up for culture and sensitivity Meds: None - Radiology Interpretation Free Text/Narrative:: None Departure - Departure Time of Disposition: 18:55 Disposition: Home, Self-Care 01 Condition: Good Clinical Impression: Hypomagnesemia, History of kidney stones, Dysuria, Elevated blood pressure reading Osteoarthritis Qualifiers: Osteoarthritis location: multiple joints Osteoarthritis type: primary Qualified Code(s): 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 Follow up with your regular provider in 10-14 days as needed, if symptoms persist. Bring these discharge instructions with you to that visit.. 2. Urine tests should be repeated at follow up visit with possible repeat urine culture,etc. at that time. Today's urine culture is pending with results in about 2- 3 days. We will call you, if we need to change your therapy. 3. Encourage oral fluids, including daily cranberry use, etc.as directed. 4. Work excuse- See Form 5. Immediately after this visit verify that your cellular telephone's voicemail has been activated and is empty. Also verify that your home telephone's answering machine is operating properly and has space to receive messages. Note that it is sometimes necessary for us to be able to contact you at a later date to discuss your medical care. 6. Please remember that we are ALWAYS here for you and want to answer any questions you may have. Feel free to call the hospital any time and we call you back JOSEFINA. Sepsis Event Note (ED) - Focused Exam Vital Signs: Vital Signs Temp Pulse Resp BP Pulse Ox 10/15/19 18:15 37.0 C 88 16 153/84 H 100 - Problem List & Annotations (1) Dysuria SNOMED Code(s): 54698742 Code(s): R30.0 - DYSURIA Status: Acute Priority: High Current Visit: Yes Onset Date: ~10/13/19 Annotation/Comment:: Negative UA with specimen set up for culture and sensitivity. Note mild microhematuria possibly secondary to her recurrent/chronic urolithiasis with no colic type symptoms at this time. Observe for now. Oral fluids, cranberry juice, etc. are to be encouraged. Work excuse was provided. (2) History of kidney stones SNOMED Code(s): 816126121 Code(s): Z87.442 - PERSONAL HISTORY OF URINARY CALCULI Status: Chronic Priority: Medium Current Visit: Yes Annotation/Comment:: As above (3) Elevated blood pressure reading SNOMED Code(s): 24221045 Code(s): R03.0 - ELEVATED BLOOD-PRESSURE READING, W/O DIAGNOSIS OF HTN Status: Acute Priority: Medium Current Visit: Yes Onset Date: 10/15/19 Annotation/Comment:: No previous history of hypertension. Observe for now. (4) Hypomagnesemia SNOMED Code(s): 298364533 Code(s): E83.42 - HYPOMAGNESEMIA Status: Chronic Priority: High Current Visit: Yes Onset Date: 07/13/19 Annotation/Comment:: Currently under therapy. (5) Osteoarthritis SNOMED Code(s): 967849235 Code(s): M19.90 - UNSPECIFIED OSTEOARTHRITIS, UNSPECIFIED SITE Status: Chronic Priority: Medium Current Visit: Yes Annotation/Comment:: Stable by history Qualifiers: Osteoarthritis location: multiple joints Osteoarthritis type: primary Qualified Code(s): M89.49 - Other hypertrophic osteoarthropathy, multiple sites - Problem List Review Problem List Initiated/Reviewed/Updated: Yes - My Orders Last 24 Hours: My Active Orders 10/15/19 18:10 CULTURE URINE [RM] Routine 10/15/19 18:15 Obtain Past Medical Record [OM.PC] Routine - Assessment/Plan Last 24 Hours: My Active Orders 10/15/19 18:10 CULTURE URINE [RM] Routine 10/15/19 18:15 Obtain Past Medical Record [OM.PC] Routine Assessment:: As above Plan: As above. Extensive precautions were given to the patient, who is in agreement with the treatment plan. See Patient Instructions for further treatment and plan.
== END 2019-10-15 18:55 | disposition home or self-care (01) ==
LOC: LL.ED 18:12
DX: E83.42 Hypomagnesemia (principal); R30.0 Dysuria; R03.0 Elevated blood-pressure reading, without diagnosis of hypertension; M89.49 Other hypertrophic osteoarthropathy, multiple sites; E66.9 Obesity, unspecified; Z88.2 Allergy status to sulfonamides; Z87.442 Personal history of urinary calculi
CPT/HCPCS: 81001; 87086; 99283

== ENCOUNTER 2019-11-05 19:21 | Emergency (ER) | payer BC ==
[2019-11-05] MEDS ORDERED: Tamsulosin 0.4 MG Cap.ER PO ONE (20:02)
--- NOTE | 2019-11-05 20:07 | EDM.PDOC ---
ED HPI GENERAL MEDICAL PROBLEM - General Chief Complaint: Flank Pain Stated Complaint: left side pain Time Seen by Provider: 11/05/19 19:35 Source of Information: Reports: Patient History Limitations: Reports: No Limitations - History of Present Illness INITIAL COMMENTS - FREE TEXT/NARRATIVE: Pt with left low abdomen and left flank pain No fever Noticed her urine was dark today Has hx/o kidney stones in past was treated with Tramadol and Flomax in past Onset: Gradual Duration: Day(s): Location: Reports: Abdomen, Back Quality: Reports: Ache, Stabbing Severity: Moderate Left Hip Pain Score (Numeric/FACES): 5 - Related Data Allergies Allergy/AdvReac Type Severity Reaction Status Date / Time Sulfa (Sulfonamide Allergy Hives Verified 11/05/19 19:37 Antibiotics) Home Meds: Home Meds norgestimate-ethinyl estradioL [Estarylla 0.25-0.035 mg Tablet] 1 each PO DAILY 07/13/19 [History] Loratadine [Claritin] 10 mg PO DAILY PRN 09/11/19 [History] Magnesium Oxide 400 mg PO DAILY 11/05/19 [History] Past Medical History HEENT History: Reports: Allergic Rhinitis Cardiovascular History: Reports: Heart Murmur, Other (See Below) Other Cardiovascular History: Atrial septal defect. She does not know her cholesterol status. Respiratory History: Reports: None Genitourinary History: Reports: Renal Calculus, Other (See Below) Other Genitourinary History: Recurrent bilateral urolithiasis with last episode possibly on 09/11/19 with spontaneous passage on each occasion. Other [employer] History: Note current BCP use with LMP 09/22/19. Musculoskeletal History: Reports: Arthritis, Back Pain, Chronic, Neck Pain, Chronic, Osteoarthritis Endocrine/Metabolic History: Reports: Obesity/BMI 30+ - Past Surgical History HEENT Surgical History: Reports: Oral Surgery, Other (See Below) Other HEENT Surgeries/Procedures: [place] teeth extraction 4 at age 16. Female Surgical History: Reports: None Musculoskeletal Surgical History: Reports: Arthroscopic Knee, Arthroscopic Procedure, Other (See Below) Other Musculoskeletal Surgeries/Procedures:: Scope of the right knee in 2013. Social & Family History - Family History Family Medical History: Unobtainable - Tobacco Use Smoking Status *Q: Never Smoker - Caffeine Use Caffeine Use: Reports: Coffee, Soda - Living Situation & Occupation Living situation: Reports: Single, Alone Occupation: Employed ([employer]) ED ROS GENERAL - Review of Systems Review Of Systems: See Below GI/Abdominal: Reports: Abdominal Pain : Reports: Flank Pain ED EXAM, GI/ABD - Physical Exam Exam: See Below Exam Limited By: No Limitations General Appearance: Moderate Distress GI/Abdominal Exam: Tender Back Exam: CVA Tenderness (L) Course - Vital Signs Last Recorded V/S: Last Vital Signs Temp 98.6 F 11/05/19 19:22 Pulse 86 11/05/19 19:22 Resp 18 11/05/19 19:22 BP 144/92 H 11/05/19 19:22 Pulse Ox 100 11/05/19 19:22 - Orders/Labs/Meds Orders: Active Orders 24 hr Category Date Time Status Tamsulosin [Flomax] Med 11/05/19 20:02 Once 0.4 mg PO ONETIME ONE Medication Orders Tamsulosin HCl (Flomax) 0.4 mg PO ONETIME ONE Stop: 11/05/19 20:03 Labs: Laboratory Tests 11/05/19 Range/Units 19:28 Specimen Type . Urine Color Dark yellow Urine Appearance Slightly cloudy Urine pH 5.5 (5.0-9.0) Ur Specific [place] >= 1.030 (1.005-1.030) Urine Protein 100 H (NEGATIVE) mg/dL Urine Glucose (UA) Negative (NEGATIVE) mg/dL Urine Ketones Negative (NEGATIVE) mg/dL Urine Occult Blood Large H (NEGATIVE) Urine Nitrite Negative (NEGATIVE) Urine Bilirubin Small H (NEGATIVE) Urine Urobilinogen 0.2 (0.2-1.0) E.U./dL Ur Leukocyte Esterase Negative (NEGATIVE) Urine RBC 50-75 H /HPF Urine WBC Not seen /HPF Ur Epithelial Cells Not seen /LPF Urine Bacteria Few (NONE TO FEW) /HPF Meds: Medications Generic Name Dose Route Start Last Admin Trade Name Freq PRN Reason Stop Dose Admin Tamsulosin HCl 0.4 mg 11/05/19 20:02 Flomax PO 11/05/19 20:03 ONETIME ONE - Re-Assessments/Exams Free Text/Narrative Re-Assessment/Exam: 11/05/19 20:05 See UA Pt does not desire CT at this time Pt does not desire IVF Will treat with Tramadol and Flomax Will follow up in clinic Departure - Departure Time of Disposition: 20:10 Disposition: Home, Self-Care 01 Clinical Impression: Kidney stone - Discharge Information *PRESCRIPTION DRUG MONITORING PROGRAM REVIEWED*: Not Applicable *COPY OF PRESCRIPTION DRUG MONITORING REPORT IN PATIENT RAIMUNDO: Not Applicable Instructions: Kidney Stones, [id number] Referrals: Jojo Nye PA-C [Primary Care Provider] - Additional Instructions: Rx Flomax 0.4 mg daily Rx Tramadol 50 mg One pill every 6 hours for pain Follow up in clinic Strain urine Sepsis Event Note (ED) - Evaluation Sepsis Screening Result: No Definite Risk - Focused Exam Vital Signs: Vital Signs Temp Pulse Resp BP Pulse Ox 11/05/19 19:22 98.6 F 86 18 144/92 H 100 - My Orders Last 24 Hours: My Active Orders 11/05/19 20:02 Tamsulosin [Flomax] 0.4 mg PO ONETIME ONE - Assessment/Plan Last 24 Hours: My Active Orders 11/05/19 20:02 Tamsulosin [Flomax] 0.4 mg PO ONETIME ONE
== END 2019-11-05 20:30 | disposition home or self-care (01) ==
LOC: LL.ED 19:21
DX: N20.0 Calculus of kidney (principal); E66.9 Obesity, unspecified; Z88.2 Allergy status to sulfonamides
CPT/HCPCS: 81001; 99284; A9270

== ENCOUNTER 2019-11-27 21:36 | Emergency (ER) | payer BC ==
[2019-11-27 22:16] LABS: CHLORIDE,CL 103 mmol/L (98-107); SODIUM,NA 141 mmol/L (136-145)
[2019-11-27] MEDS ORDERED: Ketorolac 10 MG Tab PO ONE (22:25)
[2019-11-27] MEDS ORDERED: Cyclobenzaprine 10 MG Tab PO ONE (22:25)
--- NOTE | 2019-11-27 22:30 | EDM.PDOC ---
ED HPI GENERAL MEDICAL PROBLEM - General Chief Complaint: Headache Stated Complaint: headache Time Seen by Provider: 11/27/19 21:58 Source of Information: Reports: Patient History Limitations: Reports: No Limitations - History of Present Illness INITIAL COMMENTS - FREE TEXT/NARRATIVE: Patient concerned that she has been having headaches for a week. These started a few days after she accidentally bumped the back of her head on a piece of equipment at work. She did not feel she bumped her head hard/did not feel woozy or see stars. She was leaning forward and look down and bumped head as she raised back up. Able to continue to work. Says that sometimes when she bends over she gets a little vertigo and ears left ear/head sometimes feels full. Otherwise is doing well. Not taking much in way of pain meds. No neuro changes/weakness/speech changes noted. No vision changes. - Related Data Allergies Allergy/AdvReac Type Severity Reaction Status Date / Time Sulfa (Sulfonamide Allergy Hives Verified 11/27/19 21:52 Antibiotics) Home Meds: Home Meds Loratadine [Claritin] 10 mg PO DAILY PRN 09/11/19 [History] Magnesium Oxide 400 mg PO DAILY 11/05/19 [History] Hydrocodone/Acetaminophen [Hydrocodone-Acetamin 5-325 mg] 1 tab PO Q4H PRN 11/27/19 [History] Norethindrone-Ethin. Estradiol [Dasetta 1-35-28 Tablet] 1 tab PO DAILY 11/27/19 [History] Tamsulosin HCl 0.4 mg PO DAILY 11/27/19 [History] Past Medical History HEENT History: Reports: Allergic Rhinitis Cardiovascular History: Reports: Heart Murmur, Other (See Below) Other Cardiovascular History: Atrial septal defect. She does not know her cholesterol status. Respiratory History: Reports: None Genitourinary History: Reports: Renal Calculus, Other (See Below) Other Genitourinary History: Recurrent bilateral urolithiasis with last episode possibly on 09/11/19 with spontaneous passage on each occasion. Other [employer]ATOR [employer] History: Note current BCP use with LMP 09/22/19. Musculoskeletal History: Reports: Arthritis, Back Pain, Chronic, Neck Pain, Chronic, Osteoarthritis Endocrine/Metabolic History: Reports: Obesity/BMI 30+ - Past Surgical History HEENT Surgical History: Reports: Oral Surgery, Other (See Below) Other HEENT Surgeries/Procedures: [place] teeth extraction 4 at age 16. Female Surgical History: Reports: None Musculoskeletal Surgical History: Reports: Arthroscopic Knee, Arthroscopic Procedure, Other (See Below) Other Musculoskeletal Surgeries/Procedures:: Scope of the right knee in 2013. Social & Family History - Family History Family Medical History: Unobtainable - Tobacco Use Smoking Status *Q: Never Smoker Second Hand Smoke Exposure: No - Caffeine Use Caffeine Use: Reports: Coffee, Soda - Recreational Drug Use Recreational Drug Use: No - Living Situation & Occupation Living situation: Reports: Single, Alone Occupation: Employed ([employer]) ED ROS GENERAL - Review of Systems Review Of Systems: Comprehensive ROS is negative, except as noted in HPI. ED EXAM, GENERAL - Physical Exam Exam: See Below Exam Limited By: No Limitations General Appearance: Alert, WD/WN, No Apparent Distress Eye Exam: Bilateral Eye: EOMI, PERRL Ears: Normal External Exam, Other (left TM completely obscurred by cerumen. Right TM unremarkable) Nose: Normal Inspection Throat/Mouth: Normal Lips, Normal Voice, No Airway Compromise Head: Atraumatic, Normocephalic, Other (no pain with palpation of scalp/no hematoma) Neck: Supple, Other (Tender with palpation of both SCL muscles, right more so than left.). No: Tender Midline Respiratory/Chest: No Respiratory Distress, Lungs Clear, Normal Breath Sounds, No Accessory Muscle Use Cardiovascular: Regular Rate, Rhythm, No Murmur GI/Abdominal: Soft, Non-Tender Back Exam: Normal Inspection Extremities: Normal Inspection, Normal Range of Motion, Non-Tender, Normal Capillary Refill Neurological: Alert, Oriented, CN II-XII Intact, Normal Cognition, Normal Gait, No Motor/Sensory Deficits Psychiatric: Normal Affect, Normal Mood Skin Exam: Warm, Dry, Intact, Normal Color, No Rash Course - Vital Signs Last Recorded V/S: Last Vital Signs Temp 36.0 C L 11/27/19 21:46 Pulse 80 11/27/19 21:46 Resp 12 11/27/19 21:46 BP 140/84 11/27/19 22:03 Pulse Ox 100 11/27/19 21:46 - Orders/Labs/Meds Orders: Active Orders 24 hr Category Date Time Status Cyclobenzaprine [Flexeril] Med 11/27/19 22:25 Once 10 mg PO ONETIME ONE Ketorolac [Toradol] Med 11/27/19 22:25 Once 10 mg PO ONETIME ONE Labs: Laboratory Tests 11/27/19 11/27/19 11/27/19 Range/Units 21:55 21:55 22:01 WBC 8.7 (4.0-10.2) K/uL RBC 4.58 (3.77-5.09) M/uL Hgb 12.9 (11.7-15.5) g/dL Hct 38.6 (34.0-46.0) % MCV 84.3 (84.0-98.0) fL MCH 28.2 (28.2-33.3) pg MCHC 33.4 (31.7-36.0) g/dL RDW 13.3 (11.2-14.1) % Plt Count 303 (150-350) K/uL Neut % (Auto) 59.3 (45.0-80.0) % Lymph % (Auto) 31.6 (10.0-50.0) % [place] % (Auto) 7.1 (2.0-14.0) % Eos % (Auto) 1.4 (0.0-5.0) % Baso % (Auto) 0.6 (0.0-2.0) % Neut # (Auto) 5.15 (1.40-7.00) K/uL Lymph # (Auto) 2.74 (0.50-3.50) K/uL [place] # (Auto) 0.62 (0.00-1.00) K/uL Eos # (Auto) 0.12 (0.00-0.50) K/uL Baso # (Auto) 0.05 (0.00-0.20) K/uL Sodium 141 (136-145) mmol/L Potassium 3.6 (3.5-5.1) mmol/L Chloride 103 (98-107) mmol/L Carbon Dioxide 27.1 (21.0-32.0) mmol/L BUN 13 (7-18) mg/dL Creatinine 0.84 (0.51-1.17) mg/dL Est Cr Clr Drug Dosing 119.17 mL/min Estimated GFR (MDRD) > 60 mL/min Glucose 92 (74-106) mg/dL Calcium 9.1 (8.5-10.1) mg/dL Total Bilirubin 0.2 (0.2-1.0) mg/dL AST 20 (15-37) U/L ALT 26 (12-78) U/L Alkaline Phosphatase 70 (46-116) IU/L Total Protein 7.4 (6.4-8.2) g/dL Albumin 3.6 (3.4-5.0) g/dL Specimen Type Urinvoid Urine Color Yellow Urine Appearance Clear Urine pH 7.0 (5.0-9.0) Ur Specific [place] 1.020 (1.005-1.030) Urine Protein Negative (NEGATIVE) mg/dL Urine Glucose (UA) Negative (NEGATIVE) mg/dL Urine Ketones Negative (NEGATIVE) mg/dL Urine Occult Blood Negative (NEGATIVE) Urine Nitrite Negative (NEGATIVE) Urine Bilirubin Negative (NEGATIVE) Urine Urobilinogen 0.2 (0.2-1.0) E.U./dL Ur Leukocyte Esterase Negative (NEGATIVE) - Re-Assessments/Exams Free Text/Narrative Re-Assessment/Exam: 11/27/19 22:31 Unremarkable exam. CBC/Chem/UA unremarkable. Patient declined having left ear canal irrigated to remove cerumen. At this time there is no indication for need of head CT. Patient has had no neuro changes and head bump was described as relatively mild. Cannot rule out mild concussion however. Patient did admit that she is a worrier and a bit of a "hypochondriac" and that she did feel better after we reviewed the differential together. Suspect may be musculo-skeletal in nature given the tenderness of the SCM muscles of neck. Self massage with yoga balls recommended/discussed how to purchase the balls. Ice/heat, consider massage therapy or chiropractor evaluation. Will give dose of Toradol and Flexeril PO tonight. Patient is not a fan of taking medications and no Rx dispensed at this time. She is planning to follow up with her MD next week for CT scan to evaluate if she still has kidney stone in ureter and can follow up for headache at that time if it continues to persist. Precautions reviewed. To follow up at ER if any neuro changes are noted. Departure - Departure Time of Disposition: 22:36 Disposition: Home, Self-Care 01 Condition: Good Clinical Impression: Head contusion Qualifiers: Encounter type: sequela Contusion of head detail: scalp Qualified Code(s): S00.03XS - Contusion of scalp, sequela Headache Qualifiers: Headache type: unspecified Headache chronicity pattern: episodic headache Intractability: not intractable Qualified Code(s): R51 - Headache Impacted cerumen Qualifiers: Laterality: left Qualified Code(s): H61.22 - Impacted cerumen, left ear - Discharge Information *PRESCRIPTION DRUG MONITORING PROGRAM REVIEWED*: Not Applicable *COPY OF PRESCRIPTION DRUG MONITORING REPORT IN PATIENT RAIMUNDO: Not Applicable Instructions: Earwax Buildup, Adult, Post-Concussion Syndrome Additional Instructions: See if the medication you receive tonight helps provide better comfort. Consider the CBD oil as discussed. Follow up with your primary provider for the kidney stone CT as well as the ongoing headache issues. Return to ER if you have any neuro changes. You may benefit from chiropractor/massage therapist evaluation as discussed in ER. Call if you have any questions. Sepsis Event Note (ED) - Evaluation Sepsis Screening Result: No Definite Risk - Focused Exam Vital Signs: Vital Signs Temp Pulse Resp BP Pulse Ox 11/27/19 22:03 140/84 11/27/19 21:46 36.0 C L 80 12 149/91 H 100 - My Orders Last 24 Hours: My Active Orders 11/27/19 22:25 Cyclobenzaprine [Flexeril] 10 mg PO ONETIME ONE Ketorolac [Toradol] 10 mg PO ONETIME ONE - Assessment/Plan Last 24 Hours: My Active Orders 11/27/19 22:25 Cyclobenzaprine [Flexeril] 10 mg PO ONETIME ONE Ketorolac [Toradol] 10 mg PO ONETIME ONE
== END 2019-11-27 22:46 | disposition home or self-care (01) ==
LOC: LL.ED 21:36
DX: S00.03XA Contusion of scalp, initial encounter (principal); H61.22 Impacted cerumen, left ear; E66.9 Obesity, unspecified; Z68.32 Body mass index [BMI] 32.0-32.9, adult; Z88.2 Allergy status to sulfonamides; Z79.899 Other long term (current) drug therapy; W22.8XXA Striking against or struck by other objects, initial encounter; Y92.89 Other specified places as the place of occurrence of the external cause; Y99.0 Civilian activity done for income or pay
CPT/HCPCS: 36415; 80053; 81003; 85025; 99284; A9270

== ENCOUNTER 2019-12-16 15:41 | Emergency (ER) | payer BC ==
--- NOTE | 2019-12-16 15:55 | EDM.PDOC ---
ED HPI GENERAL MEDICAL PROBLEM - General Chief Complaint: Genitourinary Problem Stated Complaint: LEFT SIDE FLANK PAIN Time Seen by Provider: 12/16/19 15:45 Source of Information: Reports: Patient, Old Records ([facility] EMR. No paper hospital chart available.) History Limitations: Reports: No Limitations - History of Present Illness INITIAL COMMENTS - FREE TEXT/NARRATIVE: The patient drove herself to the emergency room via private automobile for evaluation of a 4-day history of increasing urinary frequency and dysuria with mild gross hematuria earlier today. She denies any colic or other UTI symptoms including urinary retention, etc., although some possible mild left CVA tenderness. Her LMP 2 months ago was normal. No recent history of abdominal pa in, heartburn, nausea, diarrhea, melena, gross hematochezia, or any food intolerance, including fatty foods, etc.. The patient also denies any recent fever, cough, wheezing, dyspnea, etc.. She was treated for some poison jessika about 1 week ago with brief steroid therapy. Onset: Gradual Onset Date: 12/12/19 Duration: Constant, Getting Worse Location: Reports: Abdomen (? Left CVA), Back (Left CVA). Denies: Head, Neck, Chest, Upper Extremity, Left, Upper Extremity, Right, Radiates to Quality: Reports: Ache, Same as Previous Episode Severity: Moderate Improves with: Reports: None Worsens with: Reports: None Context: Reports: Other (As above). Denies: Sick Contact, Trauma Associated Symptoms: Reports: Headaches (Occasional), Rash (Treated poison jessika as above). 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 Estradiol [Dasetta 1-35-28 Tablet] 1 tab PO DAILY 11/27/19 [History] Nitrofurantoin Monohyd/M-Cryst [Macrobid 100 mg Capsule] 100 mg PO BIDMEALS #14 capsule 12/16/19 [Rx] Past Medical History HEENT History: Reports: Allergic Rhinitis. Denies: Hard of Hearing, Impaired Vision Cardiovascular History: Reports: Heart Murmur, Other (See Below) Other Cardiovascular History: Atrial septal defect. She does not know her cholesterol status. Respiratory History: Reports: None. Denies: Asthma, COPD Genitourinary History: Reports: Renal Calculus, UTI, Recurrent, Other (See Below) Other Genitourinary History: Recurrent bilateral urolithiasis with last episode possibly on 10/15/2019 and possibly on 09/11/19 with spontaneous passage on each o ccasion. BEAN SORTER History: Reports: None. Denies: Dysfunctional Uterine Bleeding, Endometriosis, : 0 LMP (Approximate): 1 Month Other BEAN SORTER History: Note current BCP use Musculoskeletal History: Reports: Arthritis, Back Pain, Chronic, Neck Pain, Chronic, Osteoarthritis. Denies: Fracture, RA, SLE Endocrine/Metabolic History: Reports: Obesity/BMI 30+ - Past Surgical History HEENT Surgical History: Reports: Oral Surgery, Other (See Below). Denies: Adenoidectomy, Cataract Surgery, Eye Surgery, Laser Surgery, LASIK, Myringotomy w Tube(s), Naso-Sinus Surgery, Tonsillectomy Other HEENT Surgeries/Procedures: [place] teeth extraction 4 at age 16. Female Surgical History: Reports: None Musculoskeletal Surgical History: Reports: Arthroscopic Knee, Arthroscopic Procedure, Other (See Below) Other Musculoskeletal Surgeries/Procedures:: Scope of the right knee in 2012. Social & Family History - Family History Family Medical History: Noncontributory - Tobacco Use Smoking Status *Q: Never Smoker Tobacco Use Within Last Twelve Months: No Used Tobacco, but Quit: No Smoking Cessation Information Provided To Patient: No Second Hand Smoke Exposure: No Second Hand Smoke Education Provided: No - Caffeine Use Caffeine Use: Reports: Coffee (1 cup/day), Soda (Rarely) - Alcohol Use Alcohol Use History: Yes Days Per Week of Alcohol Use: 1 Number of Drinks Per Day: 1 Number of Drinks Per Day Comment: Usually beer. No previous DWIs, problems with alcohol abuse, etc. Total Drinks Per Week: 1 Alcohol Use in Last Twelve Months: Yes Alcohol Use Frequency: Weekly - Recreational Drug Use Recreational Drug Use: No Drug Use in Last 12 Months: No Recreational Drug Type: Denies: Amphetamines (Speed), Cocaine, Heroin, Inhalants (Glues, Solvents, Aerosols), LSD (Acid), Marijuana/Hashish, Methamphetamine, Morphine, Oxycodone - Living Situation & Occupation Living situation: Reports: Single, Alone Occupation: Employed ([employer]) ED ROS GENERAL - Review of Systems Review Of Systems: Comprehensive ROS is negative, except as noted in HPI. ED EXAM, RENAL/ - Physical Exam Exam: See Below Exam Limited By: No Limitations General Appearance: Alert, WD/WN, No Apparent Distress Head: Atraumatic, Normocephalic. No: Facial Swelling, Facial Tenderness, Sinus Tenderness Neck: Normal Inspection, Supple, Non-Tender, Full Range of Motion. No: Lymphadenopathy (L), Lymphadenopathy (R), Thyromegaly Respiratory/Chest: No Respiratory Distress, Lungs Clear, Normal Breath Sounds, No Accessory Muscle Use, Chest Non-Tender Cardiovascular: Normal Peripheral Pulses, Regular Rate, Rhythm, No Edema, No Gallop, No JVD, No Murmur, No Rub. No: Gallop/S3, Gallop/S4, Friction Rub GI/Abdominal: Normal Bowel Sounds, Soft, Non-Tender, No Organomegaly, No Distention, No Abnormal Bruit, No Mass. No: Pelvis Stable, Guarding (Female) Exam: Deferred Rectal (Female) Exam: Deferred Back Exam: Normal Inspection, Full Range of Motion. No: CVA Tenderness (L), CVA Tenderness (R), Muscle Spasm Extremities: Normal Inspection, Normal Range of Motion, Non-Tender, No Pedal Edema, Normal Capillary Refill. No: Tammy's Sign Neurological: Alert, Oriented, CN II-XII Intact, Normal Cognition, Normal Gait, No Motor/Sensory Deficits Psychiatric: Normal Affect, Normal Mood Skin Exam: Warm, Dry, Intact, Normal Color, No Rash. No: Diaphoretic, Wound/Incision Lymphatic: No Adenopathy Course - Vital Signs Last Recorded V/S: Last Vital Signs Temp 36.6 C 12/16/19 15:42 Pulse 91 12/16/19 15:42 Resp 20 12/16/19 15:42 BP 120/77 12/16/19 15:42 Pulse Ox 100 12/16/19 15:42 Vital Signs - 24 hr 12/16/19 15:42 Temperature [ 36.6 C Temporal] Pulse, 91 Peripheral [ Right Pulse Oximetry] Respiratory 20 Rate Blood Pressure 120/77 [Left Upper Arm ] O2 Sat by Pulse 100 Oximetry - Orders/Labs/Meds Orders: Active Orders 24 hr Category Date Time Status Abdomen Pelvis w Cont [CT] Stat Exams 12/16/19 15:55 Stop Req CULTURE URINE [RM] Stat Lab 12/16/19 16:05 Received Resuscitation Status Stat Resus Stat 12/16/19 15:55 Ordered Labs: Laboratory Tests 12/16/19 12/16/19 12/16/19 Range/Units 16:05 16:05 16:05 WBC 11.6 H (4.0-10.2) K/uL RBC 4.84 (3.77-5.09) M/uL Hgb 13.7 (11.7-15.5) g/dL Hct 41.1 (34.0-46.0) % MCV 84.9 (84.0-98.0) fL MCH 28.3 (28.2-33.3) pg MCHC 33.3 (31.7-36.0) g/dL RDW 14.4 H (11.2-14.1) % Plt Count 351 H (150-350) K/uL Neut % (Auto) 66.9 (45.0-80.0) % Lymph % (Auto) 23.6 (10.0-50.0) % Jennings % (Auto) 7.7 (2.0-14.0) % Eos % (Auto) 1.4 (0.0-5.0) % Baso % (Auto) 0.4 (0.0-2.0) % Neut # (Auto) 7.78 H (1.40-7.00) K/uL Lymph # (Auto) 2.75 (0.50-3.50) K/uL Jennings # (Auto) 0.90 (0.00-1.00) K/uL Eos # (Auto) 0.16 (0.00-0.50) K/uL Baso # (Auto) 0.05 (0.00-0.20) K/uL PT (9.5-12.0) SEC INR APTT (24.5-32.8) SEC Sodium (136-145) mmol/L Potassium (3.5-5.1) mmol/L Chloride (98-107) mmol/L Carbon Dioxide (21.0-32.0) mmol/L BUN (7-18) mg/dL Creatinine (0.51-1.17) mg/dL Est Cr Clr Drug Dosing mL/min Estimated GFR (MDRD) mL/min Glucose (74-106) mg/dL Lactic Acid (0.4-2.0) mmol/L Uric Acid (2.6-7.2) mg/dL Calcium (8.5-10.1) mg/dL Magnesium (1.8-2.4) mg/dL Total Bilirubin (0.2-1.0) mg/dL AST (15-37) U/L ALT (12-78) U/L Alkaline Phosphatase (46-116) IU/L Total Protein (6.4-8.2) g/dL Albumin (3.4-5.0) g/dL Amylase 33 (25-115) U/L Lipase (73-393) U/L HCG, Qual (NEGATIVE) Specimen Type Urinvoid Urine Color Yellow Urine Appearance Clear Urine pH 6.0 (5.0-9.0) Ur Specific [place] 1.025 (1.005-1.030) Urine Protein 30 H (NEGATIVE) mg/dL Urine Glucose (UA) Negative (NEGATIVE) mg/dL Urine Ketones Negative (NEGATIVE) mg/dL Urine Occult Blood Large H (NEGATIVE) Urine Nitrite Negative (NEGATIVE) Urine Bilirubin Negative (NEGATIVE) Urine Urobilinogen 0.2 (0.2-1.0) E.U./dL Ur Leukocyte Esterase Negative (NEGATIVE) Urine RBC >100 H /HPF Urine WBC Not seen /HPF 12/16/19 12/16/19 12/16/19 Range/Units 16:05 16:05 16:05 WBC (4.0-10.2) K/uL RBC (3.77-5.09) M/uL Hgb (11.7-15.5) g/dL Hct (34.0-46.0) % MCV (84.0-98.0) fL MCH (28.2-33.3) pg MCHC (31.7-36.0) g/dL RDW (11.2-14.1) % Plt Count (150-350) K/uL Neut % (Auto) (45.0-80.0) % Lymph % (Auto) (10.0-50.0) % Jennings % (Auto) (2.0-14.0) % Eos % (Auto) (0.0-5.0) % Baso % (Auto) (0.0-2.0) % Neut # (Auto) (1.40-7.00) K/uL Lymph # (Auto) (0.50-3.50) K/uL Jennings # (Auto) (0.00-1.00) K/uL Eos # (Auto) (0.00-0.50) K/uL Baso # (Auto) (0.00-0.20) K/uL PT 9.1 L (9.5-12.0) SEC INR 0.9 APTT 21.3 L (24.5-32.8) SEC Sodium 141 (136-145) mmol/L Potassium 4.7 (3.5-5.1) mmol/L Chloride 106 (98-107) mmol/L Carbon Dioxide 30.2 (21.0-32.0) mmol/L BUN 19 H (7-18) mg/dL Creatinine 0.86 (0.51-1.17) mg/dL Est Cr Clr Drug Dosing 116.40 mL/min Estimated GFR (MDRD) > 60 mL/min Glucose 107 H (74-106) mg/dL Lactic Acid 1.6 (0.4-2.0) mmol/L Uric Acid 6.0 (2.6-7.2) mg/dL Calcium 9.2 (8.5-10.1) mg/dL Magnesium 2.0 (1.8-2.4) mg/dL Total Bilirubin 0.2 (0.2-1.0) mg/dL AST 15 (15-37) U/L ALT 24 (12-78) U/L Alkaline Phosphatase 63 (46-116) IU/L Total Protein 7.4 (6.4-8.2) g/dL Albumin 3.4 (3.4-5.0) g/dL Amylase (25-115) U/L Lipase 147 (73-393) U/L HCG, Qual (NEGATIVE) Specimen Type Urine Color Urine Appearance Urine pH (5.0-9.0) Ur Specific [place] (1.005-1.030) Urine Protein (NEGATIVE) mg/dL Urine Glucose (UA) (NEGATIVE) mg/dL Urine Ketones (NEGATIVE) mg/dL Urine Occult Blood (NEGATIVE) Urine Nitrite (NEGATIVE) Urine Bilirubin (NEGATIVE) Urine Urobilinogen (0.2-1.0) E.U./dL Ur Leukocyte Esterase (NEGATIVE) Urine RBC /HPF Urine WBC /HPF 12/16/19 Range/Units 16:05 WBC (4.0-10.2) K/uL RBC (3.77-5.09) M/uL Hgb (11.7-15.5) g/dL Hct (34.0-46.0) % MCV (84.0-98.0) fL MCH (28.2-33.3) pg MCHC (31.7-36.0) g/dL RDW (11.2-14.1) % Plt Count (150-350) K/uL Neut % (Auto) (45.0-80.0) % Lymph % (Auto) (10.0-50.0) % [place] % (Auto) (2.0-14.0) % Eos % (Auto) (0.0-5.0) % Baso % (Auto) (0.0-2.0) % Neut # (Auto) (1.40-7.00) K/uL Lymph # (Auto) (0.50-3.50) K/uL [place] # (Auto) (0.00-1.00) K/uL Eos # (Auto) (0.00-0.50) K/uL Baso # (Auto) (0.00-0.20) K/uL PT (9.5-12.0) SEC INR APTT (24.5-32.8) SEC Sodium (136-145) mmol/L Potassium (3.5-5.1) mmol/L Chloride (98-107) mmol/L Carbon Dioxide (21.0-32.0) mmol/L BUN (7-18) mg/dL Creatinine (0.51-1.17) mg/dL Est Cr Clr Drug Dosing mL/min Estimated GFR (MDRD) mL/min Glucose (74-106) mg/dL Lactic Acid (0.4-2.0) mmol/L Uric Acid (2.6-7.2) mg/dL Calcium (8.5-10.1) mg/dL Magnesium (1.8-2.4) mg/dL Total Bilirubin (0.2-1.0) mg/dL AST (15-37) U/L ALT (12-78) U/L Alkaline Phosphatase (46-116) IU/L Total Protein (6.4-8.2) g/dL Albumin (3.4-5.0) g/dL Amylase (25-115) U/L Lipase (73-393) U/L HCG, Qual Negative (NEGATIVE) Specimen Type Urine Color Urine Appearance Urine pH (5.0-9.0) Ur Specific [place] (1.005-1.030) Urine Protein (NEGATIVE) mg/dL Urine Glucose (UA) (NEGATIVE) mg/dL Urine Ketones (NEGATIVE) mg/dL Urine Occult Blood (NEGATIVE) Urine Nitrite (NEGATIVE) Urine Bilirubin (NEGATIVE) Urine Urobilinogen (0.2-1.0) E.U./dL Ur Leukocyte Esterase (NEGATIVE) Urine RBC /HPF Urine WBC /HPF Urine specimen set up for culture and sensitivity Meds: Medications Discontinued Medications Generic Name Dose Route Start Last Admin Trade Name Freq PRN Reason Stop Dose Admin Iopamidol 100 ml 12/16/19 16:08 Isovue-300 (61%) IVPUSH 12/16/19 16:09 ONETIME ONE Iopamidol Confirm 12/16/19 16:11 Isovue-300 (61%) Administered 12/16/19 16:12 Dose 100 ml .ROUTE .STK-MED ONE - Radiology Interpretation Free Text/Narrative:: None Departure - Departure Time of Disposition: 17:14 Disposition: Home, Self-Care 01 Condition: Good Clinical Impression: Hematuria, Osteoarthritis, Urolithiasis - Discharge Information *PRESCRIPTION DRUG MONITORING PROGRAM REVIEWED*: Not Applicable *COPY OF PRESCRIPTION DRUG MONITORING REPORT IN PATIENT RAIMUNDO: Not Applicable Prescriptions: Nitrofurantoin Monohyd/M-Cryst [Macrobid 100 mg Capsule] 100 mg PO BIDMEALS #14 capsule Instructions: Urinary Tract Infection, Adult, [id number] Referrals: Alba Fitzpatrick NP [Primary Care Provider] - Forms: ED Department Discharge Additional Instructions: 1. Followup with your regular provider in 7 days as directed for reevaluation and recommended repeat CBC, urine test, and urine for culture and sensitivity. Bring these discharge instructions with you to that visit. 2. Tylenol 650 mg by mouth every 4 hours and/or OTC ibuprofen 2-3 tabs by mouth every 6 hours with food as directed./needed. You may stagger these medications for 48-72 hours only, which essentially means that you are receiving a pain medication about every 2 hours. 3. Urine tests should be repeated at follow up visit with e repeat urine culture,etc. at that time. Today's urine culture is pending with results in about 2-3 days. We will call you, if we need to change your therapy. 4. Immediately after this visit verify that your cellular telephone's voicemail has been activated and is empty. Also verify that your home telephone's answering machine is operating properly and has space to receive messages. Note that it is sometimes necessary for us to be able to contact you at a later date to discuss your medical care. 5. Please remember that we are ALWAYS here for you and want to answer any questions you may have. Feel free to call the hospital any time and we call you back JOSEFINA. Sepsis Event Note (ED) - Evaluation Sepsis Screening Result: No Definite Risk - Focused Exam Vital Signs: Vital Signs Temp Pulse Resp BP Pulse Ox 12/16/19 15:42 36.6 C 91 20 120/77 100 - Problem List & Annotations (1) Hematuria SNOMED Code(s): 04815988 Code(s): R31.9 - HEMATURIA, UNSPECIFIED Status: Acute Priority: High Onset Date: ~12/16/19 Annotation/Comment:: 4-day history of UTI symptoms with probable UTI and mild leukocytosis with normal lactic acid level. Note hematuria without significant WBCs and negative nitrites and leukocyte Estrace. Possible beginning left-sided nephritis?. Patient did not wish to have IM Rocephin. Note history of recurrent urolithiasis but no colic today. Initiate Macrobid therapy with urine specimen set up for culture and sensitivity. Close follow-up by regular provider as per discharge instructions. Qualifiers: Hematuria type: gross Qualified Code(s): R31.0 - Gross hematuria (2) History of kidney stones SNOMED Code(s): 597574244 Code(s): Z87.442 - PERSONAL HISTORY OF URINARY CALCULI Status: Chronic Priority: Medium Annotation/Comment:: Recurrent urolithiasis as above, although the patient refused recommended CT scan of the abdomen and pelvis with stone protocol at time of last ER evaluation in this facility on 10/15/2019. No colic at this time. Observe for now. (3) Osteoarthritis SNOMED Code(s): 204430069 Code(s): M19.90 - UNSPECIFIED OSTEOARTHRITIS, UNSPECIFIED SITE Status: Chronic Priority: Medium Annotation/Comment:: Stable by history Qualifiers: Osteoarthritis location: multiple joints Osteoarthritis type: primary Qualified Code(s): M89.49 - Other hypertrophic osteoarthropathy, multiple sites - Problem List Review Problem List Initiated/Reviewed/Updated: Yes - My Orders Last 24 Hours: My Active Orders 12/16/19 15:55 Abdomen Pelvis w Cont [CT] Stat Resuscitation Status Stat 12/16/19 16:05 CULTURE URINE [RM] Stat - Assessment/Plan Last 24 Hours: My Active Orders 12/16/19 15:55 Abdomen Pelvis w Cont [CT] Stat Resuscitation Status Stat 12/16/19 16:05 CULTURE URINE [RM] Stat Assessment:: As above Plan: As above. Extensive precautions were given to the patient, who is in agreement with the treatment plan. See Patient Instructions for further treatment and plan.
[2019-12-16] MEDS ORDERED: Iopamidol 612 MG/ML 100 ML Bottle IVPUSH ONE (16:08)
[2019-12-16] MEDS ORDERED: Iopamidol 612 MG/ML 100 ML Bottle ONE (16:11)
[2019-12-16 16:26] LABS: PTT,PARTIAL THROMBOPLSTIN TIME 21.3 SEC (24.5-32.8)
[2019-12-16 16:28] LABS: CHLORIDE,CL 106 mmol/L (98-107); SODIUM,NA 141 mmol/L (136-145)
== END 2019-12-16 17:14 | disposition home or self-care (01) ==
LOC: LL.ED 15:41
DX: N20.9 Urinary calculus, unspecified (principal); R31.9 Hematuria, unspecified; M19.90 Unspecified osteoarthritis, unspecified site; E66.9 Obesity, unspecified; Z68.33 Body mass index [BMI] 33.0-33.9, adult; Z88.2 Allergy status to sulfonamides; Z79.899 Other long term (current) drug therapy
CPT/HCPCS: 36415; 80053; 81001; 82150; 83605; 83690; 83735; 84550; 84703; 85025; 85610; 85730; 87086; 99283

== ENCOUNTER 2021-07-10 14:57 | Emergency (ER) | payer BC ==
[2021-07-10 15:55] LABS: ANION GAP 7.7 meq/L (7-15); CHLORIDE,CL 104 mmol/L (98-107); SODIUM,NA 139 mmol/L (136-145)
== END 2021-07-10 16:20 | disposition home or self-care (01) ==
LOC: LL.ED 14:57
DX: M79.89 Other specified soft tissue disorders (principal); E66.9 Obesity, unspecified; Z68.39 Body mass index [BMI] 39.0-39.9, adult; Z88.2 Allergy status to sulfonamides; Z91.048 Other nonmedicinal substance allergy status
CPT/HCPCS: 36415; 80053; 83735; 85025; 85379; 99283; 99284

== ENCOUNTER 2021-12-22 19:55 | Emergency (ER) | payer BC | END 2021-12-22 20:40 | disposition home or self-care (01) | LOC: LL.ED 19:55 | DX: N39.0 Urinary tract infection, site not specified (principal); M19.90 Unspecified osteoarthritis, unspecified site; E66.9 Obesity, unspecified; Z68.30 Body mass index [BMI] 30.0-30.9, adult; Z88.2 Allergy status to sulfonamides; Z88.8 Allergy status to other drugs, medicaments and biological substances | CPT/HCPCS: 81001; 99284 ==

== ENCOUNTER 2022-08-23 18:23 | Emergency (ER) | payer BC ==
[2022-08-23] MEDS ORDERED: Sodium Chloride 0.9% 1,000 ML IV ONE (18:39)
[2022-08-23] MEDS ORDERED: Ondansetron 4 MG/2 ML SDV IVPUSH PRN (18:39)
[2022-08-23] MEDS ORDERED: Sodium Chloride 0.9% 10 ML Syringe FLUSH PRN (18:39)
[2022-08-23] MEDS ORDERED: Ketorolac 30 MG/ML SDV IVPUSH ONE (18:41)
[2022-08-23] MEDS ORDERED: diphenhydrAMINE 50 MG/ML SDV IVPUSH ONE (18:44)
[2022-08-23 20:39] LABS: ANION GAP 10.5 meq/L (7-15); CHLORIDE,CL 102 mmol/L (98-107); ESTIMATED GFR 76 mL/min (>=60); SODIUM,NA 138 mmol/L (136-145)
== END 2022-08-23 21:09 | disposition home or self-care (01) ==
LOC: LL.ED 18:23
DX: G44.209 Tension-type headache, unspecified, not intractable (principal); E66.9 Obesity, unspecified; Z68.30 Body mass index [BMI] 30.0-30.9, adult; Z88.2 Allergy status to sulfonamides
CPT/HCPCS: 36415; 80053; 81001; 85025; 96361; 96374; 96375; 99283; 99284-25; J1200; J1885; J7030

== ENCOUNTER 2023-11-11 08:06 | Emergency (ER) | payer OTHER ==
[2023-11-11 09:01] LABS: APPEARANCE,URINE CLOUDY; BILIRUBIN,URINE NEGATIVE (NEGATIVE); COLOR,URINE YELLOW; GLUCOSE,URINE NEGATIVE (NEGATIVE); KETONES,URINE NEGATIVE (NEGATIVE); LEUKOCYTE ESTERASE,URINE NEGATIVE (NEGATIVE); NITRITE,URINE NEGATIVE (NEGATIVE); OCCULT BLOOD,URINE NEGATIVE (NEGATIVE); PROTEIN,URINE NEGATIVE (NEGATIVE); UROBILINOGEN,URINE 0.2 E.U./dL (0.2-1.0)
[2023-11-11 09:05] LABS: BACTERIA,URINE MODERATE /HPF (NONE TO FEW); EPITHELIAL CELLS,URINE FEW /LPF; MUCUS,URINE FEW /LPF (NEGATIVE); RBC,URINE 0-5 /HPF; WBC,URINE 0-5 /HPF
== END 2023-11-11 09:35 | disposition home or self-care (01) ==
LOC: LL.ED 08:06
DX: N39.0 Urinary tract infection, site not specified (principal); E66.9 Obesity, unspecified; Z68.41 Body mass index [BMI] 40.0-44.9, adult; Z79.899 Other long term (current) drug therapy; Z88.2 Allergy status to sulfonamides
CPT/HCPCS: 81001; 81025; 99284